=== PATIENT | female | born 1960 ===

== ENCOUNTER 2019-02-12 13:53 | Emergency (ER) | payer OTHER ==
--- NOTE | 2019-02-12 14:35 | UC ---
Respiratory Complaint HPI - HPI Summary HPI Summary: 58 yo woman with history of asthma, treated one week ago with azithromycin and tapering steroids starting at 50mg. She initially improved, but has increasing shortness of breath and wheeze. Currently on 30mg of prednisone once daily. Unable to rest; has used about 20 puffs of albuterol in the past 24 hours, without a spacing device. She has never used an inhaled steroid on a regular basis, but has had about 3 courses of oral steroids this year. No fever, but continues to produce a thick yellow sputum despite mucinex use. Stopped smoking 2 years ago, with about a previous 20 year pack hx. - History of Current Complaint Chief Complaint: UCGeneralIllness Stated Complaint: RESP COMP[LAINT Time Seen by Provider: 02/12/19 14:29 Hx Obtained From: Patient, Family/[employer] - here with her sister. Onset/Duration: Gradual Onset, Lasting Days Timing: Constant Severity Initially: Moderate Severity Currently: Moderate Pain Intensity: 0 Character: Cough: Productive, Sputum Description: - thick and light yellow Aggravating Factors: Exertion - not tolerating physical activity well, Recumbent Position Associated Signs And Symptoms: Positive: Dyspnea, Wheezing, Sinus Discomfort - Risk Factors Pulmonary Embolism Risk Factors: Negative Cardiac Risk Factors: Negative - Allergies/Home Medications Allergies/Adverse Reactions: Allergies Allergy/AdvReac Type Severity Reaction Status Date / Time No Known Allergies Allergy Verified 02/12/19 14:15 Home Medications: Home Medications predniSONE TAB* [Deltasone 10 MG TAB*] 10 mg PO SEE INSTRUCTIONS 02/12/19 [ History Confirmed 02/12/19] PMH/Surg Hx/FS Hx/Imm Hx Respiratory History: Asthma - Surgical History Surgical History: None - Family History Known Family History: Positive: Cardiac Disease - mother during a TAVR, Respiratory Disease - brother has asthma, Other - father CA colon - Social History Occupation: Employed Full-time Lives: Alone Alcohol Use: Occasionally Substance Use Type: None Smoking Status (MU): Former Smoker When Did the Patient Quit Smoking/Using Tobacco: 2017 Review of Systems All Other Systems Reviewed And Are Negative: Yes Constitutional: Positive: Fatigue Skin: Positive: Negative Eyes: Positive: Negative ENT: Positive: Sore Throat, Sinus Congestion Respiratory: Positive: Shortness Of Breath, Cough Cardiovascular: Positive: Negative Gastrointestinal: Positive: Negative Genitourinary: Positive: Negative Motor: Positive: Negative Neurovascular: Positive: Negative Musculoskeletal: Positive: Negative Neurological: Positive: Negative Psychological: Positive: Other - high level of stress following recent of her mother. Physical Exam Triage Information Reviewed: Yes Appearance: No Pain Distress, Ill-Appearing - not toxic, but looks unwell Vital Signs: Initial Vital Signs Temp 98.8 F 02/12/19 14:10 Pulse 95 02/12/19 14:10 Resp 24 02/12/19 14:10 BP 146/77 02/12/19 14:10 Pulse Ox 95 02/12/19 14:10 Eyes: Positive: Conjunctiva Clear ENT: Positive: Pharyngeal erythema, Nasal drainage, TMs normal Neck: Positive: Supple, Nontender, No Lymphadenopathy Respiratory: Positive: Decreased breath sounds - Mildly tachypneic without indrawing., Wheezing, Expiration. Negative: Crackles, Rhonchi Cardiovascular: Positive: RRR, No Murmur Musculoskeletal Exam: Normal Neurological Exam: Normal Psychological Exam: Normal Skin Exam: Normal Re-Evaluation - Re-Evaluation First Eval Change: Improved - improved air entry post albuterol with decreased wheeze, no crackles heard. Respiratory Course/Dx - Course Course Of Treatment: Solumedrol given, longer tapering steroid, antibiotic given purulent sputum. Discussed need for maintenance ICS and use of a spacing device. - Differential Dx/Diagnosis Differential Diagnosis/HQI/PQRI: Asthma, Lower Resp Infection Provider Diagnosis: Asthma attack Discharge ED - Sign-Out/Discharge Documenting (check all that apply): Patient Departure All imaging exams completed and their final reports reviewed: No Studies - Discharge Plan Condition: Stable Disposition: HOME Prescriptions: Albuterol HFA INHALER* [Ventolin HFA Inhaler*] 2 puff INH Q6H PRN #1 mdi PRN Reason: Wheezing DOXYcycline CAP(*) [DOXYcycline 100MG CAP(*)] 100 mg PO BID #14 cap Fluticasone HFA 110 mcg(NF) [Flovent HFA 110 mcg(NF)] 2 puff INH BID #1 mdi predniSONE TAB* [Deltasone 10 MG TAB*] 10 mg PO DAILY #33 tab Patient Education Materials: Asthma (ED) Referrals: No Primary Care Phys,NOPCP [Primary Care Provider] - Additional Instructions: Doxycycline has been prescribed as an antibiotic. It can cause GI upset, and can be taken with food but NOT within 2 hours of dairy prodiucts. Please use the spacing device for both use of albuterol and flovent to improve delivery of the medication. Rinse your mouth following use of the inhaled steroid to prevent thrush. The use of the steroid can be decreased to once daily ONCE you no longer feel the need to use the rescue albuterol inhaler. You will need to find a primary care physcian to keep up your prescriptions! - Billing Disposition and Condition Condition: STABLE Disposition: Home
[2019-02-12] MEDS ORDERED: Albuterol 2.5 MG/3 ML NEB.SOL* (0.083%) INH ONE (14:36)
[2019-02-12] MEDS ORDERED: methylPREDNISolone 125 MG* 2 ML VIAL IM ONE (15:19)
== END 2019-02-12 15:45 | disposition home or self-care (01) ==
LOC: UCEAST 13:53
DX: J45.909 Unspecified asthma, uncomplicated (principal); R53.83 Other fatigue; J02.9 Acute pharyngitis, unspecified; R09.81 Nasal congestion; Z87.891 Personal history of nicotine dependence; Z79.52 Long term (current) use of systemic steroids; Z82.5 Family history of asthma and other chronic lower respiratory diseases
CPT/HCPCS: 96372; 99202; G0463; J2930